=== PATIENT | female | born 1940 | race Caucasian/White ===

== ENCOUNTER 2024-04-02 07:54 | Emergency (ER) | payer MEDICARE, SELFPAY ==
[2024-04-02 08:01] VITALS: BP 61/43; PULSE 57; RESP 14; O2SAT 78
[2024-04-02] MEDS: MORPHINE SULFATE (*CRX) 4 MG/ML INJ IV PUSH ×2 (08:23→08:44)
--- NOTE | 2024-04-02 08:26 | ED.CPR ---
HPI - CPR General Chief Complaint: Cardiac Arrest/CPR Stated Complaint: cardiac arrest Time Seen by Provider: 04/02/24 08:02 History of Present Illness HPI narrative: patient is an 83-year-old female who presents ER in cardiac arrest. Patient was having shortness of breath throughout the weekend. Today she collapsed in front family. Bystander CPR initiated. EMS arrived in started providing ALS care. Patient did have V-tach that was shocked. Patient has had multiple doses of epinephrine as well as 1 dose of amiodarone. Upon arrival to the ER patient has had return of spontaneous circulation however she then rapidly lost her pulses and ACLS protocol was initiated once more. Related Data Allergies Allergy/AdvReac Type Severity Reaction Status Date / Time levofloxacin Allergy Unknown SEIZURES Verified 09/08/18 16:19 Review of Systems Review of Systems: ROS unobtainable: Yes unobtainable due to medical condition [facility] Past Medical History Medical History (Updated 04/02/24 @ 10:16 by Arron Kim MD) COPD (chronic obstructive pulmonary disease) Surgical History Surgical History (Updated 04/02/24 @ 10:16 by Arron Kim MD) Surgical history unknown Exam Narrative: GENERAL: frail and chronically ill-appearing. Unresponsive. HEAD: Normocephalic, atraumatic. EYES: Pupils equal and round but not reactive. ENT: Mucous membranes moist. CHEST: Clear lung sounds with bagging, no spontaneous respiratory effort. No HEART: patient with return of pulses that are irregular and strong centrally. ABDOMEN: Soft, nontender, nondistended. EXTREMITIES: No deformity. SKIN: Cool, dry, no rash. NEURO: GCS 3 Course Course Emergency Course: 825: patient with successful resuscitation and with pulse. No spontaneous movements or respirations. EKG shows inferior ST elevation [place]. Patient's daughter and son have arrived. We have discussed her symptoms over the weekend and the care patient is received up into this point. Discussed likelihood that this is a completed STEMI that is cause severe injury to the inferior aspect of her heart. Discussed that she will need to be able to maintain a heartbeat for cardiac catheterization. While having conversation patient did begin to have cardiac arrest again and resuscitation was resumed. Which after epinephrine and bicarb patient had return of spontaneous circulation. After talking to family again the decision has been made to keep the patient comfortable. They would not like to preform heroic measures or invasive procedures. Patient has received 4 mg morphine for comfort. There are no spontaneous respirations. 0903: PEA arrest at 0901. Family at bedside. Patient received a total of 8 mg Morphine. 1010: Released by coroners office as patient had no PCP. Vital Signs Vital signs: Vital Signs Pulse Rate 57 L 04/02/24 08:01 Respiratory Rate 14 04/02/24 08:01 Blood Pressure 61/43 L 04/02/24 08:01 Pulse Oximetry 78 L 04/02/24 08:01 Pulse Rate 57 L 04/02/24 08:01 Respiratory Rate 14 04/02/24 08:01 Blood Pressure 61/43 L 04/02/24 08:01 Pulse Oximetry 78 L 04/02/24 08:01 MDM - Cardiac Arrest/CPR ECG Data EKG #1: ECG completion date: 04/02/24 ECG completion time: 08:09 EKG Interpretation: bradycardia (54), atrial fibrillation, ST depression, ST elevation (II/III/aVF) and widened QRS Critical Care Time Critical Care Time Critical Care Time: Yes Total Critical Care Time: 35 Discharge Plan Discharge Clinical Impression: ST elevation (STEMI) myocardial infarction, Cardiac arrest Patient Disposition: Condition: Follow-up/Referrals: PHYSICIAN,KITCHEN MECHANIC [Non-Staff] -
--- NOTE | 2024-04-02 08:29 | ECG_ITS ---
Test Date: 2024-04-02 08:09:13 Measurements Intervals [place] Rate: 54 P: 0 [place]: 0 QRS: 101 QRSD: 193 T: -74 QT: 416 QTc: 397 Interpretive Statements ATRIAL FIBRILLATION WITH SLOW VENTRICULAR RESPONSE MARKED RIGHT AXIS DEVIATION [QRS AXIS > 100] RIGHT BUNDLE BRANCH BLOCK [120+ ms QRS DURATION, UPRIGHT V1, 40+ ms S IN I/aVL/V4/V5/V6] ANTEROSEPTAL MYOCARDIAL INFARCTION , PROBABLY OLD [40+ ms Q WAVE IN V1-V4] ST DEVIATION AND MODERATE T-WAVE ABNORMALITY, CONSIDER INFERIOR ISCHEMIA [-0.1+ mV T WAVE IN II/aVF] No previous ECG available for comparison Electronically Signed On 04-03-2024 10:43:02 CDT by Peter Rodriguez M.D.
--- NOTE | 2024-04-02 09:14 | PCCCNOTE ---
Pt brought in by EMS receiving resus. Dtr, JOSH and son present. Another son on phone and lives 2 hours away. Pt didn't have POA or living will paperwork in place. Children collectively stated they knew her request and would prefer to have resus efforts halted at this time. They had not decided on a home but will discuss. Family taken to pt's bedside by staff and vending machine technician with family at this time.
--- NOTE | 2024-04-02 09:32 | PC.NURSE ---
The following items were returned to pt family 1 pair yellow metal earrings taylor metal necklace with taylor metal pendant yellow metal ring with clear stone 1 sprayer insecticide pt insurance card
== END 2024-04-02 10:43 | disposition expired ==
PROVIDERS: Emergency Provider Emergency Medicine
DX: I21.3 ST elevation (STEMI) myocardial infarction of unspecified site (principal); I46.9 Cardiac arrest, cause unspecified; J44.9 Chronic obstructive pulmonary disease, unspecified
CPT/HCPCS: 92950; 93005; 96374; 96375; 99285; J0171; J2270